=== PATIENT | female | born 1960 | race Caucasian/White ===

== ENCOUNTER 2017-09-11 17:05 | Emergency (ER) | payer SELFPAY ==
--- NOTE | 2017-09-11 17:51 | Emergency Department Record ---
History of Present Illness - General Chief complaint: Extremity Problem Stated complaint: PAIN IN BOTH ARMS AND HANDS Time Seen by Provider: 09/11/17 17:07 Source: Patient Mode of Arrival: Ambulatory Limitations: No limitations - History of Present Illness Initial comments: 56 yo female presents to ED for evaluation of bilateral upper extremity aches from her shoulders to the hands distally. Patient reports a history of fibromyalgia, states that she sees a pain specialist as well for chronic pain needs. 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 Patient has been taking Naprosyn regularly that has not improved her symptoms, does have some left-over Tramadol from a knee surgery that helped last night. Patient denies weakness or numbness to the upper extremities bilaterally. MD Complaint: Extremity pain Onset/Timin -: Month(s) Location: Bilateral History of Same: Yes -: Yes Myalgia Radiation: None Quality: Aching Consistency: Constant Improves with: Movement Worsens with: Exertion - Related Data Home Medications Medication Instructions Recorded Confirmed Last Taken Vortioxetine Hydrobromide 20 mg PO DAILY 09/11/17 09/11/17 09/11/17 [Brintellix] Previous Rx's Medication Instructions Recorded Diazepam [Valium] 5 mg PO Q8H PRN #10 tab 09/11/17 Allergies Allergy/AdvReac Type Severity Reaction Status Date / Time azithromycin [From Zithromax] AdvReac Intermediate NAUSEA AND Verified 09/11/17 17:35 VOMITING Travel Screening - Travel/Exposure Within Last 30 Days Have you traveled within the last 30 days?: No - Travel/Exposure Within Last Year Have you traveled outside the [place] in the last year?: No - Additonal Travel Details Have you been exposed to anyone with a communicable illness?: No - Travel Symptoms Symptom Screening: None Review of Systems Constitutional: Denies: Chills, Fever, Malaise, Night sweats Eyes: Denies: Eye discharge, Eye pain ENT: Denies: Congestion, Ear pain, Epistaxis Respiratory: Denies: Cough, Dyspnea Cardiovascular: Denies: Chest pain, Dyspnea on exertion Endocrine: Denies: Fatigue, Heat or cold intolerance Gastrointestinal: Denies: Abdominal pain, Nausea, Vomiting Genitourinary: Denies: Incontinence, Retention Musculoskeletal: Reports: Myalgia. Denies: Arthralgia, Back pain, Gout, Joint swelling Skin: Denies: Bruising, Change in color Neurological: Denies: Abnormal gait, Confusion, Headache, Seizure Psychiatric: Denies: Anxiety Hematological/Lymphatic: Denies: Anemia, Blood Clots Past Medical History - SOCIAL HISTORY Smoking Status: Never smoker Alcohol Use: None Drug Use: None - RESPIRATORY Hx Respiratory Disorders: Yes Hx Asthma: Yes Hx Bronchitis: Yes (in past) Hx Pneumonia: Yes (in may 2014) Comment:: seasonal/dust/animals allergies - CARDIOVASCULAR Hx Cardio Disorders: Yes Hx Hypertension: Yes (on meds) Comment:: d/t knees and fibromyalgia - NEURO Hx Neuro Disorders: No - GI Hx GI Disorders: Yes Hx Irritable Bowel: Yes - Hx Genitourinary Disorders: No Hx Renal Disease: Yes (low renal function in past; unknown etiology) Comment:: hyst - ENDOCRINE Hx Endocrine Disorders: Yes Comment:: pre-diabetic; does not check blood sugar - MUSCULOSKELETAL Hx Musculoskeletal Disorders: Yes Hx Musculoskeletal Disease: Yes (fibromyalgia) Comment:: hip pain/problems severe left knee pain - PSYCH Hx Psych Problems: Yes Hx Anxiety: Yes Hx Depression: Yes - HEMATOLOGY/ONCOLOGY Hx Hematology/Oncology Disorders: No Family Medical History Any Significant Family History?: No Family Hx Comment (NOT TO BE USED IN PLACE OF ITEMS BELOW): diabetes; renal failure; parkinsons; seizures; *Stroke Comment: DM, renal failure, parkinsons, siezures Physical Exam - General General Appearance: Alert, Oriented x3, Cooperative, No acute distress Limitations: No limitations - Head Head exam: Atraumatic, Normocephalic, Normal inspection Head exam detail: negative: Abrasion, Contusion, Raymundo's sign, General tenderness, Hematoma, Laceration - Eye Eye exam: Normal appearance. negative: Conjunctival injection, Periorbital swelling, Periorbital tenderness, Scleral icterus - ENT Ear exam: negative: Auricular hematoma, Auricular trauma Nasal Exam: negative: Active bleeding, Discharge, Dried blood, Foreign body Mouth exam: negative: Drooling, Laceration, Muffled voice, Tongue elevation - Neck Neck exam: Normal inspection. negative: Meningismus, Tenderness - Respiratory Respiratory exam: Normal lung sounds bilaterally. negative: Rales, Respiratory distress, Rhonchi, Stridor - Cardiovascular Cardiovascular Exam: Regular rate, Normal rhythm, Normal heart sounds Peripheral Pulses: 3+: Radial (R), Radial (L) - GI/Abdominal GI/Abdominal exam: Soft. 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 negative: Pedal edema - Back Back exam: Denies: CVA tenderness (R), CVA tenderness (L) - Neurological Neurological exam: Alert, Normal gait, Oriented X3 - Psychiatric Psychiatric exam: Normal affect, Normal mood - Skin Skin exam: Normal color. negative: Abrasion Type of lesion: negative: abrasion Course Vital Signs 09/11/17 17:18 Temperature 98.0 F Pulse Rate [ 104 H Right Radial] Respiratory 14 Rate Blood Pressure 109/71 [Left Arm] Pulse Ox 97 - Reevaluation(s) Reevaluation #1: 09/11/17 17:57 Patient was seen and examined, has FROM of the upper extremities bilaterally and distal strength is 5/5 and symmetric. Symptoms appear c.w myalgia likely from overuse. Will prescribe Valium as needed as well as limited use of the upper extremities to reduce inflammation of the joints and muscles. Patient agrees with the plan as discussed. Disposition Disposition: Discharge Clinical Impression: Overuse injury Disposition: Home, Self-Care Condition: (2) Stable Instructions: Musculoskeletal Pain (ED) Additional Instructions: Return to ED if your symptoms worsen or if you have any concerns. Follow-up with [facility] [place] or Dr. Barragan for further evaluation. Valium as needed for your muscle aches. Prescriptions: Diazepam [Valium] 5 mg PO Q8H PRN #10 tab PRN Reason: Pain - Moderate (5-7) Forms: Patient Portal Access Time of Disposition: 17:51 Quality - Quality Measures Quality Measures: N/A - Blood Pressure Screening Does Patient Have Any of the Following: No Blood Pressure Classification: Normal BP Reading Systolic Measurement: 109 Diastolic Measurement: 71 Screening for High Blood Pressure: < Normal BP, F/U Not Required > [G8783]
== END 2017-09-11 18:04 | disposition home or self-care (01) ==
LOC: ER 17:05
DX: M70.822 Other soft tissue disorders related to use, overuse and pressure, left upper arm (principal); M70.821 Other soft tissue disorders related to use, overuse and pressure, right upper arm; M79.7 Fibromyalgia
CPT/HCPCS: 99282